=== PATIENT | male | born 1990 | race Caucasian/White ===

== ENCOUNTER 2016-08-30 13:58 | Emergency (ER) | payer OTHER ==
--- NOTE | 2016-08-30 14:29 | Emergency Department Record ---
History of Present Illness - General Chief Complaint: Abdominal Pain Stated Complaint: RIGHT LOWER ABD PAIN Time Seen by Provider: 08/30/16 14:19 Source: Patient, RN notes reviewed Mode of Arrival: Ambulatory - History of Present Illness Initial Comments: patient has right lower quad pain and diarrhea stools times 2 per day and nausea and no vomiting. Mother called and said he vomited blood and he drinks 12 beers per day and patient states he has not drank for 72-96 hours. When I asked him about vomiting blood because of what mother said he said he did vomit some bright red blood 4 days ago and only small amount. MD Complaint: Abdominal pain Onset/Timin -: Days(s) Location: RLQ Migration to: Q Quality: Sharp Consistency: Intermittent Improves With: Nothing Worsens With: Nothing Associated Symptoms: Chills, Dysuria, Nausea, Other - Related Data Home Medications Medication Instructions Recorded Confirmed Last Taken Lorazepam [Lorazepam] 1 mg PO ASDIR 08/30/16 08/30/16 Unknown Omeprazole 20 mg PO DAILY 08/30/16 08/30/16 Unknown Previous Rx's Medication Instructions Recorded Omeprazole 10 mg PO TID #30 capsule. 08/30/16 Omeprazole 20 mg PO BID #60 cap. 08/30/16 Allergies Allergy/AdvReac Type Severity Reaction Status Date / Time cefixime [From Suprax] Allergy Severe throat Verified 08/30/16 14:11 swelling Travel Screening - Travel/Exposure Within Last 30 Days Have you traveled within the last 30 days?: No Review of Systems Reviewed: No additional complaints except as noted below Constitutional: Reports: As per HPI. Denies: Chills, Fever, Malaise, Night sweats, Weakness, Weight change Eyes: Reports: As per HPI. Denies: Eye discharge, Eye pain, Photophobia, Vision change ENT: Reports: As per HPI. Denies: Congestion, Dental pain, Ear pain, Epistaxis , Hearing loss, Throat pain Respiratory: Reports: As per HPI. Denies: Cough, Dyspnea, Hemoptysis, Stridor, Wheezes Cardiovascular: Reports: As per HPI. Denies: Arrhythmia, Chest pain, Dyspnea on exertion, Edema, Murmurs, Orthopnea, Palpitations, Paroxysmal nocturnal dyspnea, Rheumatic Fever, Syncope Endocrine: Reports: As per HPI. Denies: Fatigue, Heat or cold intolerance, Polydipsia, Polyuria Gastrointestinal: Reports: As per HPI, Abdominal pain, Diarrhea, Nausea. Denies : Constipation, Hematemesis, Hematochezia, Melena, Vomiting Genitourinary: Reports: As per HPI. Denies: Dysuria, Frequency, Hematuria, Incontinence, Retention, Testicular pain, Testicular mass, Urgency Musculoskeletal: Reports: As per HPI. Denies: Arthralgia, Back pain, Gout, Joint swelling, Myalgia, Neck pain Skin: Reports: As per HPI. Denies: Bruising, Change in color, Change in hair/ nails, Lesions, Pruritus, Rash Neurological: Reports: As per HPI. Denies: Abnormal gait, Confusion, Headache, Numbness, Paresthesias, Seizure, Tingling, Tremors, Vertigo, Weakness Psychiatric: Reports: As per HPI. Denies: Anxiety, Auditory hallucinations, Depression, Homicidal thoughts, Suicidal thoughts, Visual hallucinations Hematological/Lymphatic: Reports: As per HPI. Denies: Anemia, Blood Clots, Easy bleeding, Easy bruising, Swollen glands Past Medical History - SOCIAL HISTORY Smoking Status: Never smoker Alcohol Use: Occassional Drug Use: Occassional Drug Use Detail:: Marijuana - RESPIRATORY Hx Respiratory Disorders: No - CARDIOVASCULAR Hx Cardio Disorders: Yes Hx Deep Vein Thrombosis: Yes - NEURO Hx Neuro Disorders: Yes Hx Seizures: Yes (micoseizure disorder, 6mm benign tumor) - GI Hx GI Disorders: Yes Hx Reflux: Yes Comment:: umbilical hernia - Hx Genitourinary Disorders: No - ENDOCRINE Hx Endocrine Disorders: No - MUSCULOSKELETAL Hx Musculoskeletal Disorders: Yes Hx Back Injury: Yes - PSYCH Hx Psych Problems: Yes Hx Anxiety: Yes - HEMATOLOGY/ONCOLOGY Hx Hematology/Oncology Disorders: No Family Medical History Any Significant Family History?: Yes Hx Cancer: Father, Mother Physical Exam - General General Appearance: Alert, Oriented x3, Cooperative, No acute distress - Head Head exam: Normal inspection - Eye Eye exam: Normal appearance, PERRL Pupils: Normal accommodation - ENT ENT exam: Normal exam, Mucous membranes moist, Normal external ear exam, Normal orophraynx, TM's normal bilaterally Ear exam: Normal external inspection. negative: External canal tenderness Nasal Exam: Normal inspection. negative: Discharge, Sinus tenderness Mouth exam: Normal external inspection, Tongue normal Teeth exam: Normal inspection. negative: Dental caries Throat exam: Normal inspection. negative: Tonsillar erythema, Tonsillar exudate - Neck Neck exam: Normal inspection, Full ROM. negative: Tenderness - Respiratory Respiratory exam: Normal lung sounds bilaterally. negative: Respiratory distress - Cardiovascular Cardiovascular Exam: Regular rate, Normal rhythm, Normal heart sounds - GI/Abdominal GI/Abdominal exam: Soft, Normal bowel sounds, Tenderness (right lower quad pain) - Rectal Rectal exam: Deferred - exam: Circumcision, Normal inspection, Other (neg for hernia ). negative: Scrotal swelling, Testicular tenderness, Urethral discharge - Extremities Extremities exam: Normal inspection, Full ROM, Normal capillary refill. negative: Tenderness - Back Back exam: Reports: Normal inspection, Full ROM. Denies: Muscle spasm, Rash noted, Tenderness - Neurological Neurological exam: Alert, Normal gait, Oriented X3, Reflexes normal - Psychiatric Psychiatric exam: Normal affect, Normal mood - Skin Skin exam: Dry, Intact, Normal color, Warm Course Vital Signs 08/30/16 14:01 Temperature 98.3 F Pulse Rate 86 Respiratory 18 Rate Blood Pressure 135/85 Pulse Ox 96 Medical Decision Making - Data Complexity MDM Data: Labs Ordered and/or Reviewed (liver enzymes up from etoh), X-Ray Ordered and/or Reviewed (CT abd neg) - Lab Data Result diagrams: 08/30/16 14:00 08/30/16 14:00 Disposition Clinical Impression: Gastritis, Alcohol abuse Abdominal pain Qualifiers: Abdominal location: right lower quadrant Qualified Code(s): R10.31 - Right lower quadrant pain Disposition: Home, Self-Care Condition: (1) Good Instructions: Abdominal Pain (ED), Gastritis (ED) Additional Instructions: omeprazole BID [place] 15 ml after meals and bedtime follow up with substance counciler stop alochol Prescriptions: Omeprazole 20 mg PO BID #60 cap. Omeprazole 10 mg PO TID #30 capsule. Forms: Patient Portal Access Time of Disposition: 15:45
[2016-08-30] MEDS ORDERED: 0.9 % SODIUM CHLORIDE 1,000 ML BAG IV ONE (14:34)
[2016-08-30 14:46] LABS: BASO % 0.5 % (0-6); EOS % 1.1 % (0-6); HEMATOCRIT 47.2 % (42.0-52.0); HEMOGLOBIN 16.9 gm/dl (14.0-18.0); LYMPH % 15.8 % (16-45); MEAN CELL VOLUME 91.3 fl (81-97); MEAN CORPUSCULAR HEMOGLOBIN 32.7 pg (27-33); MEAN CORPUSCULAR HGB CONC 35.8 g/dl (32-36); MEAN PLATELET VOLUME 10.4 fl (7.4-10.4); MONO % 10.6 % (0-9); PLATELET COUNT 196 K/uL (130-400); RED BLOOD COUNT 5.17 M/uL (4.40-5.70); RED CELL DISTRIBUTION WIDTH 12.3 % (11.5-14.5); WHITE BLOOD COUNT W/O DIFF 5.6 K/uL (4.2-12.2)
[2016-08-30 14:47] LABS: URINE APPEARANCE SL CLOUDY; URINE BILIRUBIN NEGATIVE (NEGATIVE); URINE BLOOD NEGATIVE (NEGATIVE); URINE COLOR YELLOW; URINE GLUCOSE (UA) NEGATIVE (NEGATIVE); URINE KETONE NEGATIVE (NEGATIVE); URINE LEUKOCYTE ESTERASE NEGATIVE (NEGATIVE); URINE NITRITE NEGATIVE (NEGATIVE); URINE PROTEIN NEGATIVE (NEGATIVE)
[2016-08-30 14:52] LABS: AMPHETAMINE SCREEN URINE NOT DETECTED; BARBITURATE SCREEN URINE NOT DETECTED; BENZODIAZEPINE SCREEN URINE NOT DETECTED; COCAINE SCREEN URINE NOT DETECTED; METHADONE SCREEN URINE NOT DETECTED; METHAMPHETAMINE SCREEN NOT DETECTED; OPIATE SCREEN URINE NOT DETECTED; OXYCODONE SCREEN URINE NOT DETECTED; PHENCYCLIDINE SCREEN URINE NOT DETECTED; PROPOXYPHENE SCREEN URINE NOT DETECTED; THC SCREEN URINE DETECTED; TRICYCLIC ANTIDEPRESSANT SCRN NOT DETECTED
[2016-08-30 15:02] LABS: ALBUMIN 5.3 gm/dL (3.5-5.0); ALKALINE PHOSPHATASE 80 U/L (38-126); ALT/SGPT 403 U/L (21-72); ANION GAP 13.9 (7-16); AST/SGOT 369 U/L (17-59); BILIRUBIN,TOTAL 2.49 mg/dL (0.2-1.3); BLOOD UREA NITROGEN 9 mg/dL (9-20); CARBON DIOXIDE 26.1 mmol/L (22-30); CREATININE 0.8 mg/dL (0.66-1.25); EST GLOMERULAR FILTRATION RATE > 60 ml/min; GLUCOSE,RANDOM 109 mg/dL (70-110); LIPASE 157 U/L (23-300); TOTAL PROTEIN 8.6 gm/dL (6.3-8.2)
--- NOTE | 2016-08-30 16:56 | Emergency Department Record ---
History of Present Illness - General Chief Complaint: Abdominal Pain Stated Complaint: RIGHT LOWER ABD PAIN Time Seen by Provider: 08/30/16 14:19 Source: Patient, RN notes reviewed Mode of Arrival: Ambulatory - History of Present Illness MD Complaint: Abdominal pain Onset/Timin -: Days(s) Location: RLQ Migration to: LLQ Quality: Sharp Consistency: Intermittent Improves With: Nothing Worsens With: Nothing Associated Symptoms: Chills, Dysuria, Nausea, Other - Related Data Home Medications Medication Instructions Recorded Confirmed Last Taken Lorazepam [Lorazepam] 1 mg PO ASDIR 08/30/16 08/30/16 Unknown Omeprazole 20 mg PO DAILY 08/30/16 08/30/16 Unknown Previous Rx's Medication Instructions Recorded Dicyclomine HCl [Bentyl] 10 mg PO Q8H #30 cap 08/30/16 Omeprazole 20 mg PO BID #60 cap. 08/30/16 Allergies Allergy/AdvReac Type Severity Reaction Status Date / Time cefixime [From Suprax] Allergy Severe throat Verified 08/30/16 14:11 swelling Travel Screening - Travel/Exposure Within Last 30 Days Have you traveled within the last 30 days?: No Review of Systems Constitutional: Reports: As per HPI. Denies: Chills, Fever, Malaise, Night sweats, Weakness, Weight change Eyes: Reports: As per HPI. Denies: Eye discharge, Eye pain, Photophobia, Vision change ENT: Reports: As per HPI. Denies: Congestion, Dental pain, Ear pain, Epistaxis , Hearing loss, Throat pain Respiratory: Reports: As per HPI. Denies: Cough, Dyspnea, Hemoptysis, Stridor, Wheezes Cardiovascular: Reports: As per HPI. Denies: Arrhythmia, Chest pain, Dyspnea on exertion, Edema, Murmurs, Orthopnea, Palpitations, Paroxysmal nocturnal dyspnea, Rheumatic Fever, Syncope Endocrine: Reports: As per HPI. Denies: Fatigue, Heat or cold intolerance, Polydipsia, Polyuria Gastrointestinal: Reports: As per HPI, Abdominal pain, Diarrhea, Nausea. Denies : Constipation, Hematemesis, Hematochezia, Melena, Vomiting Genitourinary: Reports: As per HPI. Denies: Dysuria, Frequency, Hematuria, Incontinence, Retention, Testicular pain, Testicular mass, Urgency Musculoskeletal: Reports: As per HPI. Denies: Arthralgia, Back pain, Gout, Joint swelling, Myalgia, Neck pain Skin: Reports: As per HPI. Denies: Bruising, Change in color, Change in hair/ nails, Lesions, Pruritus, Rash Neurological: Reports: As per HPI. Denies: Abnormal gait, Confusion, Headache, Numbness, Paresthesias, Seizure, Tingling, Tremors, Vertigo, Weakness Psychiatric: Reports: As per HPI. Denies: Anxiety, Auditory hallucinations, Depression, Homicidal thoughts, Suicidal thoughts, Visual hallucinations Hematological/Lymphatic: Reports: As per HPI. Denies: Anemia, Blood Clots, Easy bleeding, Easy bruising, Swollen glands Past Medical History - SOCIAL HISTORY Smoking Status: Never smoker Alcohol Use: Occassional Drug Use: Occassional Drug Use Detail:: Marijuana - RESPIRATORY Hx Respiratory Disorders: No - CARDIOVASCULAR Hx Cardio Disorders: Yes Hx Deep Vein Thrombosis: Yes - NEURO Hx Neuro Disorders: Yes Hx Seizures: Yes (micoseizure disorder, 6mm benign tumor) - GI Hx GI Disorders: Yes Hx Reflux: Yes Comment:: umbilical hernia - Hx Genitourinary Disorders: No - ENDOCRINE Hx Endocrine Disorders: No - MUSCULOSKELETAL Hx Musculoskeletal Disorders: Yes Hx Back Injury: Yes - PSYCH Hx Psych Problems: Yes Hx Anxiety: Yes - HEMATOLOGY/ONCOLOGY Hx Hematology/Oncology Disorders: No Family Medical History Any Significant Family History?: Yes Hx Cancer: Father, Mother Course Vital Signs 08/30/16 08/30/16 14:01 15:58 Temperature 98.3 F Pulse Rate 86 82 Respiratory 18 16 Rate Blood Pressure 135/85 145/86 Pulse Ox 96 98 Medical Decision Making - Lab Data Result diagrams: 08/30/16 14:00 08/30/16 14:00 Lab Results 08/30/16 08/30/16 08/30/16 Range/Units 14:00 14:00 14:00 WBC 5.6 (4.2-12.2) K/uL RBC 5.17 (4.40-5.70) M/uL Hgb 16.9 (14.0-18.0) gm/dl Hct 47.2 (42.0-52.0) % MCV 91.3 (81-97) fl MCH 32.7 (27-33) pg MCHC 35.8 (32-36) g/dl RDW 12.3 (11.5-14.5) % Plt Count 196 (130-400) K/uL MPV 10.4 (7.4-10.4) fl Gran % 72.0 (47-80) % Lymphocytes % 15.8 L (16-45) % Monocytes % 10.6 H (0-9) % Eosinophils % 1.1 (0-6) % Basophils % 0.5 (0-6) % Sodium 138 (136-145) mmol/L Potassium 4.3 (3.5-5.1) mmol/L Chloride 98 (98-107) mmol/L Carbon Dioxide 26.1 (22-30) mmol/L Anion Gap 13.9 (7-16) BUN 9 (9-20) mg/dL Creatinine 0.8 (0.66-1.25) mg/dL Estimated GFR > 60 ml/min Random Glucose 109 (70-110) mg/dL Calcium 10.0 (8.5-10.1) mg/dL Total Bilirubin 2.49 H (0.2-1.3) mg/dL Direct Bilirubin 0.0 (0-0.3) mg/dL AST 369 H (17-59) U/L ALT 403 H (21-72) U/L Alkaline Phosphatase 80 (38-126) U/L Total Protein 8.6 H (6.3-8.2) gm/dL Albumin 5.3 H (3.5-5.0) gm/dL Lipase 157 (23-300) U/L Urine Color Yellow Urine Appearance Sl cloudy Urine pH 7.5 (5.0-8.0) Ur Specific [place] 1.010 (1.002-1.030) Urine Protein Negative (NEGATIVE) Urine Glucose (UA) Negative (NEGATIVE) Urine Clinitest Urine Ketones Negative (NEGATIVE) Urine Blood Negative (NEGATIVE) Urine Nitrite Negative (NEGATIVE) Urine Bilirubin Negative (NEGATIVE) Urine Ictotest Prot Sulfosalicylic Acd Urine Urobilinogen 1.0 (0.20 - 1.00) E.U./dL Ur Leukocyte Esterase Negative (NEGATIVE) Urine Opiates Screen Ur Oxycodone Screen Urine Methadone Screen Ur Propoxyphene Screen Ur Barbituates Screen Ur Tricyclics Screen Ur Phencyclidine Scrn Ur Amphetamine Screen U Methamphetamines Scrn U Benzodiazepines Scrn Urine Cocaine Screen Urine Cannabis Screen Ethyl Alcohol 0.010 (0-0.010) g/dL 08/30/16 08/30/16 Range/Units 14:00 14:46 WBC (4.2-12.2) K/uL RBC (4.40-5.70) M/uL Hgb (14.0-18.0) gm/dl Hct (42.0-52.0) % MCV (81-97) fl MCH (27-33) pg MCHC (32-36) g/dl RDW (11.5-14.5) % Plt Count (130-400) K/uL MPV (7.4-10.4) fl Gran % (47-80) % Lymphocytes % (16-45) % Monocytes % (0-9) % Eosinophils % (0-6) % Basophils % (0-6) % Sodium (136-145) mmol/L Potassium (3.5-5.1) mmol/L Chloride (98-107) mmol/L Carbon Dioxide (22-30) mmol/L Anion Gap (7-16) BUN (9-20) mg/dL Creatinine (0.66-1.25) mg/dL Estimated GFR ml/min Random Glucose (70-110) mg/dL Calcium (8.5-10.1) mg/dL Total Bilirubin (0.2-1.3) mg/dL Direct Bilirubin (0-0.3) mg/dL AST (17-59) U/L ALT (21-72) U/L Alkaline Phosphatase (38-126) U/L Total Protein (6.3-8.2) gm/dL Albumin (3.5-5.0) gm/dL Lipase (23-300) U/L Urine Color Cancelled Urine Appearance Cancelled Urine pH Cancelled (5.0-8.0) Ur Specific [place] Cancelled (1.002-1.030) Urine Protein Cancelled (NEGATIVE) Urine Glucose (UA) Cancelled (NEGATIVE) Urine Clinitest Cancelled Urine Ketones Cancelled (NEGATIVE) Urine Blood Cancelled (NEGATIVE) Urine Nitrite Cancelled (NEGATIVE) Urine Bilirubin Cancelled (NEGATIVE) Urine Ictotest Cancelled Prot Sulfosalicylic Acd Cancelled Urine Urobilinogen Cancelled (0.20 - 1.00) E.U./dL Ur Leukocyte Esterase Cancelled (NEGATIVE) Urine Opiates Screen Not detected Ur Oxycodone Screen Not detected Urine Methadone Screen Not detected Ur Propoxyphene Screen Not detected Ur Barbituates Screen Not detected Ur Tricyclics Screen Not detected Ur Phencyclidine Scrn Not detected Ur Amphetamine Screen Not detected U Methamphetamines Scrn Not detected U Benzodiazepines Scrn Not detected Urine Cocaine Screen Not detected Urine Cannabis Screen Detected Ethyl Alcohol (0-0.010) g/dL Disposition Clinical Impression: Gastritis, Alcohol abuse Abdominal pain Qualifiers: Abdominal location: right lower quadrant Qualified Code(s): R10.31 - Right lower quadrant pain Disposition: Home, Self-Care Condition: (1) Good Instructions: Gastritis (ED), Abdominal Pain (ED) Additional Instructions: omeprazole BID [place] 15 ml after meals and bedtime follow up with substance counciler stop alochol Prescriptions: Dicyclomine HCl [Bentyl] 10 mg PO Q8H #30 cap Omeprazole 20 mg PO BID #60 cap.dr Forms: Patient Portal Access Time of Disposition: 16:56
== END 2016-08-30 16:01 | disposition home or self-care (01) ==
LOC: ER 13:58
DX: K29.20 Alcoholic gastritis without bleeding (principal); R30.0 Dysuria; R11.0 Nausea; R19.7 Diarrhea, unspecified; R94.5 Abnormal results of liver function studies; F10.20 Alcohol dependence, uncomplicated; Y90.0 Blood alcohol level of less than 20 mg/100 ml
CPT/HCPCS: 99284 ×2; 83690; 85025; 80076; 80048; 81003; 80305; 74176; G0480; 80320; J7030